=== PATIENT | male | born 1980 | race Caucasian/White ===

== ENCOUNTER 2019-05-10 08:43 | Day surgery (SDC) | payer BC | END 2019-05-10 23:24 | disposition home or self-care (01) | LOC: US 08:43 | DX: M75.91 Shoulder lesion, unspecified, right shoulder (principal); J30.2 Other seasonal allergic rhinitis; Z88.8 Allergy status to other drugs, medicaments and biological substances; Z87.891 Personal history of nicotine dependence | CPT/HCPCS: 20611; 76942 ==

== ENCOUNTER 2019-05-29 08:55 | Day surgery (SDC) | payer BC ==
[~2019-05-29] VITALS: Ht 185.4 cm; Wt 81.9 kg
--- NOTE | 2019-05-29 10:23 | NUR ---
05/29/19 1023 Sarahi Holder 1011- DR POST PRESENTED TO THE CODEY-OP HOLDING ARE TO PERFORM AN INTERSCALENE BLOCK. PT TOLERATED PROCEDURE WELL.
--- NOTE | 2019-05-29 11:54 | NUR ---
05/29/19 1154 Cecile Owens PT ALERT AND VERBALIZING NO PAIN IN HIS SHOULDER. VSS.
== END 2019-05-29 13:00 | disposition home or self-care (01) ==
LOC: ORSCSDS 08:55
PROVIDERS: Orthopaedic Surgery
PROC: 0RNJ4ZZ Release Right Shoulder Joint, Percutaneous Endoscopic Approach (ICD-10-PCS; principal; 2019-05-29 10:30)
DX: M67.411 Ganglion, right shoulder (principal); M75.41 Impingement syndrome of right shoulder; Z87.891 Personal history of nicotine dependence
CPT/HCPCS: J0171; J0690; J1100; J1885; J2001; J2250; J2405; J2704; J2710; J3010; J7120

== ENCOUNTER → 2022-01-13 | Outpatient (CLI) | payer BC | END | disposition home or self-care (01) | LOC: LAB SHORT 08:12 → LAB 08:12 | DX: Z30.2 Encounter for sterilization (principal) ==